=== PATIENT | male | born 1995 | race Caucasian/White ===

== ENCOUNTER 2017-06-04 18:25 | Emergency (ER) | payer SELFPAY ==
[~2017-06-04] VITALS: Ht 170.2 cm; Wt 62.6 kg
[2017-06-04 18:30] VITALS: Ht 170.2 cm; Wt 62.6 kg
== END 2017-06-04 19:32 | disposition left against medical advice (07) ==
LOC: FTE 18:25
DX: Z53.21 Procedure and treatment not carried out due to patient leaving prior to being seen by health care provider (principal)